=== PATIENT | male | born 1990 | race Caucasian/White ===

== ENCOUNTER 2017-03-20 21:50 | Emergency (ER) | payer MEDICAID ==
[~2017-03-20] VITALS: Ht 177.8 cm; Wt 72.3 kg
[2017-03-20 21:53] VITALS: BP 150/89
== END 2017-03-20 23:14 | disposition left against medical advice (07) ==
LOC: ED 23:08
DX: R10.12 Left upper quadrant pain (principal); Z53.21 Procedure and treatment not carried out due to patient leaving prior to being seen by health care provider